=== PATIENT | male | born 1935 | race Caucasian/White ===

== ENCOUNTER 2023-02-17 10:31 | Inpatient (IN) | payer MEDICARE, MEDICAID ==
[~2023-02-17] VITALS: Ht 172.7 cm; Wt 86.0 kg
[2023-02-17] MEDS ORDERED: METF-1211 PO (10:35)
[2023-02-17 11:57] LABS: COVID AG,FIA SOURCE NASAL SWAB
[2023-02-17 12:13] LABS: BASOPHILS % (AUTO) 1.1 % (0.0-2.0); EOSINOPHILS % (AUTO) 2.1 % (1.0-6.0); HEMOGLOBIN 12.4 g/dL (13.5-17.5); LYMPHOCYTES # (AUTO) 1.1 K/uL (1.0-4.8); MEAN CORPUSCULAR HEMOGLOBIN 29.3 pg (26.0-34.0); MEAN CORPUSCULAR HGB CONC 33.5 G/dL (31.0-37.0); MEAN CORPUSCULAR VOLUME 88 fL (80-100); MONOCYTES # (AUTO) 0.7 K/uL (0.1-1.0); MONOCYTES % (AUTO) 11.8 % (2.0-9.0); NEUTROPHILS # (AUTO) 3.7 K/uL (1.8-7.7); PLATELET COUNT (AUTO) 204 K/uL (150-450); RED BLOOD CELL COUNT(AUTO) 4.23 MIL/uL (4.50-5.90); RED CELL DISTRIBUTION WIDTH 14.3 % (11.5-14.5); WHITE BLOOD COUNT (AUTO) 5.7 K/uL (4.5-11.0)
[2023-02-17 12:15] LABS: SARS-COV2 (COVID) ANTIGEN,FIA Negative (Negative)
[2023-02-17 12:27] LABS: ANION GAP 9 mmol/L (8-16); CALCIUM, TOTAL 8.8 mg/dL (8.8-10.5); CARBON DIOXIDE 26 mmol/L (22-29); CHLORIDE 94 mmol/L (98-107); CREATININE 0.74 mg/dL (0.60-1.30); GLOMERULAR FILTR. RATE CALC > 60 mL/min (>60); GLUCOSE,RANDOM 204 mg/dL (70-110); POTASSIUM 3.9 mmol/L (3.5-5.1); SODIUM SERUM 128 mmol/L (136-145); UREA NITROGEN, BLOOD 7 mg/dL (7-18)
[2023-02-17 12:33] LABS: ALANINE AMINOTRANSFERASE 22 U/L (12-78); ALBUMIN 3.6 g/dL (3.4-5.0); ALKALINE PHOSPHATASE 97 U/L (46-116); ASPARTATE AMINOTRANSFERASE 16 U/L (15-37); BILIRUBIN,TOTAL 0.4 mg/dL (0.1-1.0); TOTAL PROTEIN, SERUM 6.9 g/dL (6.4-8.2)
[2023-02-17] MEDS ORDERED: ACETAMINOPHEN 325 MG TABLET PO PRN (13:00)
[2023-02-17] MEDS ORDERED: ONDANSETRON HCL 4 MG/2 ML VIAL IVP PRN ×2 (13:00→14:30)
[2023-02-17] MEDS ORDERED: MAGNESIUM HYDROXIDE SUSPENSION 30 ML UDCUP PO PRN (14:30)
[2023-02-17] MEDS ORDERED: BISACODYL 10 MG RECTAL RECTAL SUPPOSITORY PR PRN (14:30)
[2023-02-17] MEDS ORDERED: ZOLPIDEM TARTRATE 5 MG TABLET PO PRN (14:30)
[2023-02-17] MEDS ORDERED: HYDROCODONE/ACETAMINOPHEN 5-325 MG TABLET PO PRN (14:30)
[2023-02-17] MEDS ORDERED: MORPHINE SULFATE 2 MG/ML SYRINGE IVP PRN (14:30)
[2023-02-17 15:05] VITALS: BP 153/76; PULSE 68; RESP 18; TEMP 97.9
[2023-02-17] MEDS ORDERED: GADOTERATE MEGLUMINE 10 MMOL/20 ML VIAL IVP ONE (15:15)
[2023-02-17] MEDS: HEPARIN SODIUM,PORCINE 5,000 UNITS/ML VIAL SQ SCH (16:19)
[2023-02-17 19:41] VITALS: BP 144/79; PULSE 75; RESP 18; TEMP 97.9
[2023-02-17] MEDS: DOCUSATE SODIUM 100 MG CAPSULE PO SCH (22:14)
[2023-02-17] MEDS: ACETAMINOPHEN 325 MG TABLET PO PRN (22:51)
[2023-02-17 23:56] VITALS: BP 108/58; PULSE 62; RESP 19; TEMP 98.2
[2023-02-18] MEDS: HEPARIN SODIUM,PORCINE 5,000 UNITS/ML VIAL SQ SCH ×4 (00:03→23:25)
[2023-02-18 04:41] VITALS: BP 109/61; PULSE 66; RESP 18; TEMP 98.1
[2023-02-18 05:42] LABS: BASOPHILS % (AUTO) 0.6 % (0.0-2.0); EOSINOPHILS % (AUTO) 3.3 % (1.0-6.0); HEMATOCRIT 35.7 % (41-53); HEMOGLOBIN 12.2 g/dL (13.5-17.5); LYMPHOCYTES # (AUTO) 1.8 K/uL (1.0-4.8); LYMPHOCYTES % (AUTO) 29.8 % (22.0-44.0); MEAN CORPUSCULAR HEMOGLOBIN 29.8 pg (26.0-34.0); MEAN CORPUSCULAR HGB CONC 34.3 G/dL (31.0-37.0); MEAN CORPUSCULAR VOLUME 87 fL (80-100); MONOCYTES # (AUTO) 0.7 K/uL (0.1-1.0); MONOCYTES % (AUTO) 11.1 % (2.0-9.0); NEUTROPHILS # (AUTO) 3.3 K/uL (1.8-7.7); NEUTROPHILS % (AUTO) 55.2 % (40.0-70.0); PLATELET COUNT (AUTO) 201 K/uL (150-450); RED CELL DISTRIBUTION WIDTH 14.3 % (11.5-14.5)
[2023-02-18 05:54] LABS: ANION GAP 7 mmol/L (8-16); CALCIUM, TOTAL 8.7 mg/dL (8.8-10.5); CARBON DIOXIDE 26 mmol/L (22-29); CHLORIDE 99 mmol/L (98-107); CREATININE 0.76 mg/dL (0.60-1.30); GLOMERULAR FILTR. RATE CALC > 60 mL/min (>60); GLUCOSE,RANDOM 161 mg/dL (70-110); POTASSIUM 3.5 mmol/L (3.5-5.1); SODIUM SERUM 132 mmol/L (136-145); UREA NITROGEN, BLOOD 9 mg/dL (7-18)
[2023-02-18 07:24] VITALS: BP 129/62; PULSE 69; RESP 18; TEMP 97.7
[2023-02-18] MEDS: MetFORMIN HCL 500 MG TABLET PO SCH (10:30)
[2023-02-18] MEDS: PANTOPRAZOLE SODIUM 40 MG DR TABLET PO SCH (10:30)
[2023-02-18] MEDS: DOCUSATE SODIUM 100 MG CAPSULE PO SCH ×2 (10:30→20:52)
[2023-02-18 11:03] VITALS: BP 124/64; PULSE 65; RESP 19; TEMP 98.2
[2023-02-18 15:12] VITALS: BP 155/84; PULSE 85; RESP 18; TEMP 97.9
[2023-02-18 20:17] VITALS: BP 129/72; PULSE 80; RESP 20; TEMP 98.8
[2023-02-19 00:21] LABS: GLUCOMETER DEV NAME(LOC) 5S.2C; GLUCOSE,POINT OF CARE 239 MG/DL (70-110)
[2023-02-19] MEDS: ACETAMINOPHEN 325 MG TABLET PO PRN (00:32)
[2023-02-19 00:35] VITALS: BP 128/81; PULSE 73; RESP 20; TEMP 98.3
[2023-02-19 04:12] VITALS: BP 119/60; PULSE 78; RESP 20; TEMP 98.7
[2023-02-19 07:26] VITALS: BP 122/67; PULSE 69; RESP 20; TEMP 98.2
[2023-02-19 07:38] LABS: BASOPHILS % (AUTO) 1.1 % (0.0-2.0); EOSINOPHILS % (AUTO) 4.3 % (1.0-6.0); HEMATOCRIT 37.6 % (41-53); HEMOGLOBIN 12.9 g/dL (13.5-17.5); LYMPHOCYTES # (AUTO) 1.8 K/uL (1.0-4.8); LYMPHOCYTES % (AUTO) 30.4 % (22.0-44.0); MEAN CORPUSCULAR HGB CONC 34.2 G/dL (31.0-37.0); MEAN CORPUSCULAR VOLUME 88 fL (80-100); MONOCYTES # (AUTO) 0.7 K/uL (0.1-1.0); MONOCYTES % (AUTO) 11.8 % (2.0-9.0); NEUTROPHILS # (AUTO) 3.1 K/uL (1.8-7.7); NEUTROPHILS % (AUTO) 52.4 % (40.0-70.0); PLATELET COUNT (AUTO) 214 K/uL (150-450); RED BLOOD CELL COUNT(AUTO) 4.29 MIL/uL (4.50-5.90); RED CELL DISTRIBUTION WIDTH 14.1 % (11.5-14.5)
[2023-02-19 07:46] LABS: ANION GAP 7 mmol/L (8-16); CALCIUM, TOTAL 8.7 mg/dL (8.8-10.5); CARBON DIOXIDE 27 mmol/L (22-29); CHLORIDE 97 mmol/L (98-107); CREATININE 0.77 mg/dL (0.60-1.30); GLOMERULAR FILTR. RATE CALC > 60 mL/min (>60); GLUCOSE,RANDOM 154 mg/dL (70-110); POTASSIUM 3.5 mmol/L (3.5-5.1); SODIUM SERUM 130 mmol/L (136-145); UREA NITROGEN, BLOOD 9 mg/dL (7-18)
[2023-02-19] MEDS: HEPARIN SODIUM,PORCINE 5,000 UNITS/ML VIAL SQ SCH (08:29)
[2023-02-19] MEDS: MetFORMIN HCL 500 MG TABLET PO SCH (08:29)
[2023-02-19] MEDS: PANTOPRAZOLE SODIUM 40 MG DR TABLET PO SCH (08:29)
[2023-02-19] MEDS: DOCUSATE SODIUM 100 MG CAPSULE PO SCH (08:29)
[2023-02-19 11:13] VITALS: BP 127/63; PULSE 74; RESP 20; TEMP 99.1
[2023-02-19 12:31] LABS: GLUCOMETER DEV NAME(LOC) 5S.2C; GLUCOSE,POINT OF CARE 176 MG/DL (70-110)
[2023-02-19] MEDS ORDERED: MECLIZINE HCL 25 MG TABLET PO PRN (13:00)
[2023-02-19 15:29] VITALS: BP 140/87; PULSE 81; RESP 20; TEMP 98.2
[2023-02-19] MEDS ORDERED: MECL-302 PO (16:16)
== END 2023-02-19 17:00 | disposition home health service (06) | DRG 149 ==
LOC: EMS 10:56 → 5S 13:39
PROVIDERS: ADMIT Internal Medicine; ATTEND Internal Medicine
DX: H81.10 Benign paroxysmal vertigo, unspecified ear (principal); E87.1 Hypo-osmolality and hyponatremia; E11.65 Type 2 diabetes mellitus with hyperglycemia; D64.9 Anemia, unspecified; I65.23 Occlusion and stenosis of bilateral carotid arteries; Z20.822 Contact with and (suspected) exposure to COVID-19
CPT/HCPCS: 70450; 70553; 71045; 80048; 80053; 82962; 85025; 93005; 93306; 93880; 97116; 97163; 97530; 99285; J1644; 36415-L1; 36415-TC

== ENCOUNTER 2023-02-19 22:53 | Emergency (ER) | payer MEDICARE, MEDICAID ==
[~2023-02-19] VITALS: Ht 172.7 cm; Wt 86.0 kg
[~2023-02-19 22:53] MED LIST: MECL-302 PO; METF-1211 PO
[2023-02-20 00:19] VITALS: TEMP 97.1
[2023-02-20 00:57] LABS: BASOPHILS % (AUTO) 0.6 % (0.0-2.0); EOSINOPHILS % (AUTO) 1.9 % (1.0-6.0); HEMOGLOBIN 12.8 g/dL (13.5-17.5); LYMPHOCYTES # (AUTO) 1.3 K/uL (1.0-4.8); LYMPHOCYTES % (AUTO) 20.8 % (22.0-44.0); MEAN CORPUSCULAR HEMOGLOBIN 29.3 pg (26.0-34.0); MEAN CORPUSCULAR HGB CONC 33.5 G/dL (31.0-37.0); MEAN CORPUSCULAR VOLUME 88 fL (80-100); MONOCYTES # (AUTO) 0.6 K/uL (0.1-1.0); MONOCYTES % (AUTO) 9.2 % (2.0-9.0); NEUTROPHILS # (AUTO) 4.2 K/uL (1.8-7.7); NEUTROPHILS % (AUTO) 67.5 % (40.0-70.0); PLATELET COUNT (AUTO) 226 K/uL (150-450); RED BLOOD CELL COUNT(AUTO) 4.35 MIL/uL (4.50-5.90); RED CELL DISTRIBUTION WIDTH 14.2 % (11.5-14.5); WHITE BLOOD COUNT (AUTO) 6.2 K/uL (4.5-11.0)
[2023-02-20 00:58] LABS: ANION GAP 9 mmol/L (8-16); CARBON DIOXIDE 25 mmol/L (22-29); CHLORIDE 95 mmol/L (98-107); CREATININE 0.84 mg/dL (0.60-1.30); GLOMERULAR FILTR. RATE CALC > 60 mL/min (>60); GLUCOSE,RANDOM 187 mg/dL (70-110); POTASSIUM 3.8 mmol/L (3.5-5.1); SODIUM SERUM 129 mmol/L (136-145); UREA NITROGEN, BLOOD 10 mg/dL (7-18)
[2023-02-20 01:04] LABS: ALANINE AMINOTRANSFERASE 24 U/L (12-78); ALBUMIN 3.5 g/dL (3.4-5.0); ALKALINE PHOSPHATASE 89 U/L (46-116); ASPARTATE AMINOTRANSFERASE 12 U/L (15-37); BILIRUBIN,TOTAL 0.4 mg/dL (0.1-1.0); TOTAL PROTEIN, SERUM 6.6 g/dL (6.4-8.2)
[2023-02-20 01:06] LABS: ALCOHOL, BLOOD (SERUM) < 3 mg/dL (0-10)
[2023-02-20] MEDS ORDERED: LORazepam 1 MG TABLET PO ONE (02:00)
[2023-02-20 03:40] VITALS: BP 134/80; PULSE 72; RESP 18
== END 2023-02-20 04:00 | disposition home or self-care (01) ==
LOC: EMS 22:54
DX: F41.9 Anxiety disorder, unspecified (principal); E11.9 Type 2 diabetes mellitus without complications; I11.9 Hypertensive heart disease without heart failure
CPT/HCPCS: 99284; 80053; 85025; 36415; 71045; G0480

== ENCOUNTER 2023-06-14 11:57 | Emergency (ER) | payer MEDICARE, MEDICAID ==
[~2023-06-14] VITALS: Ht 177.8 cm; Wt 84.1 kg
[2023-06-14 12:09] VITALS: TEMP 97.9
[2023-06-14] MEDS ORDERED: OMEP40CA21 PO (12:14)
[2023-06-14 12:48] LABS: BASOPHILS % (AUTO) 1.1 % (0.0-2.0); EOSINOPHILS % (AUTO) 2.7 % (1.0-6.0); HEMOGLOBIN 11.9 g/dL (13.5-17.5); LYMPHOCYTES # (AUTO) 1.3 K/uL (1.0-4.8); LYMPHOCYTES % (AUTO) 19.9 % (22.0-44.0); MEAN CORPUSCULAR HEMOGLOBIN 29.3 pg (26.0-34.0); MEAN CORPUSCULAR HGB CONC 33.9 G/dL (31.0-37.0); MEAN CORPUSCULAR VOLUME 86 fL (80-100); MONOCYTES # (AUTO) 0.7 K/uL (0.1-1.0); MONOCYTES % (AUTO) 10.6 % (2.0-9.0); NEUTROPHILS # (AUTO) 4.3 K/uL (1.8-7.7); NEUTROPHILS % (AUTO) 65.7 % (40.0-70.0); PLATELET COUNT (AUTO) 217 K/uL (150-450); RED BLOOD CELL COUNT(AUTO) 4.05 MIL/uL (4.50-5.90); RED CELL DISTRIBUTION WIDTH 14.5 % (11.5-14.5); WHITE BLOOD COUNT (AUTO) 6.6 K/uL (4.5-11.0)
[2023-06-14 12:59] LABS: ANION GAP 10 mmol/L (8-16); CARBON DIOXIDE 24 mmol/L (22-29); CHLORIDE 99 mmol/L (98-107); CREATININE 0.75 mg/dL (0.60-1.30); GLUCOSE,RANDOM 263 mg/dL (70-110); POTASSIUM 3.6 mmol/L (3.5-5.1); SODIUM SERUM 133 mmol/L (136-145); UREA NITROGEN, BLOOD 10 mg/dL (7-18)
[2023-06-14 13:00] LABS: CALCIUM, TOTAL 8.4 mg/dL (8.8-10.5); GLOMERULAR FILTR. RATE CALC > 60 mL/min (>60)
[2023-06-14 13:06] LABS: ALANINE AMINOTRANSFERASE 20 U/L (12-78); ALBUMIN 3.3 g/dL (3.4-5.0); ALKALINE PHOSPHATASE 147 U/L (46-116); ASPARTATE AMINOTRANSFERASE 11 U/L (15-37); BILIRUBIN,TOTAL 0.4 mg/dL (0.1-1.0); TOTAL PROTEIN, SERUM 6.4 g/dL (6.4-8.2); TROPONIN I-HIGH SENSITIVITY 5 ng/L (<76)
[2023-06-14 14:41] LABS: APPEARANCE,URINE CLEAR (CLEAR); BILIRUBIN,URINE NEGATIVE (NEGATIVE); COLOR,URINE LIGHT YELLOW (YELLOW); GLUCOSE, URINE (UA) 300-500 mg/dL (NEGATIVE); KETONES,URINE NEGATIVE (NEGATIVE); LEUKOCYTE ESTERASE ,URINE NEGATIVE (NEGATIVE); NITRATE,URINE NEGATIVE (NEGATIVE); OCCULT BLOOD,URINE NEGATIVE (NEGATIVE); PROTEIN,URINE NEGATIVE (NEGATIVE); UROBILINOGEN,URINE <=1.0 mg/dL (<=1.0)
[2023-06-14 15:00] VITALS: BP 153/84; PULSE 89; RESP 15
[2023-06-14 15:06] LABS: BACTERIA,URINE None Seen /HPF (None Seen); RBC,URINE None Seen /HPF (0-2); WBC,URINE None Seen /HPF (0-5)
[2023-06-14 15:07] LABS: SQUAMOUS EPITHELIAL CELL,UR Few /LPF (None Seen)
== END 2023-06-14 16:12 | disposition home or self-care (01) ==
LOC: EMS 11:57
DX: R05.9 Cough, unspecified (principal); R06.02 Shortness of breath; E11.9 Type 2 diabetes mellitus without complications; N40.0 Benign prostatic hyperplasia without lower urinary tract symptoms; I11.9 Hypertensive heart disease without heart failure
CPT/HCPCS: 71045; 80053; 81001; 82962; 84484; 85025; 93005; 99285; 36415-L1; 36415-TC